=== PATIENT | female | born 2000 | race Caucasian/White ===

== ENCOUNTER 2024-02-24 16:24 | Emergency (ER) | payer SELFPAY ==
[~2024-02-24] VITALS: Ht 167.6 cm; Wt 68.0 kg
[2024-02-24 16:27] VITALS: TEMP 97.6; O2SAT 98
[2024-02-24] MEDS ORDERED: NAPR220C61 MT (18:03)
[2024-02-24 18:20] VITALS: BP 102/57; PULSE 88; RESP 14
[2024-02-24] MEDS: KETOROLAC 30MG/ML VIAL IM ONE (18:20)
== END 2024-02-24 19:10 | disposition home or self-care (01) ==
LOC: ER 16:24
DX: S99.921A Unspecified injury of right foot, initial encounter (principal); G89.11 Acute pain due to trauma; F32.9 Major depressive disorder, single episode, unspecified; Z59.00 Homelessness unspecified; W22.8XXA Striking against or struck by other objects, initial encounter; Y93.89 Activity, other specified; Y92.89 Other specified places as the place of occurrence of the external cause; Y99.8 Other external cause status
CPT/HCPCS: 73610; 73630; 29515; 96372; 99284; J1885; Z7610 ×2